=== PATIENT | male | born 1960 | race Caucasian/White ===

== ENCOUNTER 2018-10-23 02:10 | Emergency (ER) | payer OTHER ==
[2018-10-23 02:23] LABS: BILIRUBIN,URINE NEGATIVE (NEGATIVE); CLARITY,URINE HAZY (CLEAR); GLUCOSE, URINE (UA) NEGATIVE (NEGATIVE); KETONES,URINE (UA) NEGATIVE (NEGATIVE); LEUKOCYTE ESTERASE, URINE SMALL (NEGATIVE); NITRITE,URINE NEGATIVE (NEGATIVE); OCCULT BLOOD,URINE LARGE (NEGATIVE); PH,URINE 5.5 PH (5.0-7.5); PROTEIN,URINE 100 mg/dL (NEGATIVE); UROBILINOGEN,URINE 0.2 (NORMAL) E.U./dL (NORMAL)
[2018-10-23 02:32] LABS: BACTERIA,URINE Few /HPF (None Seen); SQUAMOUS EPITHELIAL CELL,UR FEW Squamous (<= Few)
--- NOTE | 2018-10-23 03:02 | ED Physician Documentation ---
History of Present Illness - Stated complaint Stated Complaint: MALE - Chief complaint Chief Complaint: UTI - Additonal information Additional information: This is a 58-year-old male who presents with dysuria, frequency, urgency, as well as hematuria. Patient began having symptoms of some blood in his urine around 5 days ago, he has been drinking plenty of fluids as well as cranberry juice, and his symptoms began to improve yesterday, but then recurred yesterday evening. He did pass a stringy substance on Saturday evening, he has not passed anything else worsening it looks like a stone. He denies any abdominal pain. No nausea or vomiting. He has never had urinary tract infections in the past. He is sexually active only with his , denies any concern for sexually transmitted infection. No penile lesions, no testicular pain. Review of Systems Constitutional: denies: Fever Throat: denies: Oral lesions / sores GI: denies: Abdominal Pain : reports: Dysuria Skin: denies: Lesions PD PAST MEDICAL HISTORY - Past Medical History Cardiovascular: None Respiratory: None Endocrine/Autoimmune: None GI: None : None HEENT: None Psych: None Musculoskeletal: None Derm: None - Past Surgical History Past Surgical History: Yes General: Appendectomy, Colonoscopy - Present Medications Home Medications: Ambulatory Orders Medication Instructions Recorded Confirmed Atorvastatin [Lipitor] 10 mg ORAL DAILY 10/23/18 10/23/18 Cefdinir 300 mg PO BID 7 Days #14 capsule 10/23/18 Lisinopril 10 mg PO DAILY 10/23/18 10/23/18 - Allergies Allergies/Adverse Reactions: Allergies Allergy/AdvReac Type Severity Reaction Status Date / Time No Known Drug Allergies Allergy Verified 10/23/18 02:14 - Social History Does the pt smoke?: No Smoking Status: Never smoker Does the pt drink ETOH?: Yes Does the pt have substance abuse?: No - Immunizations Immunizations are current?: Yes PD ED PE NORMAL - Vitals Vital signs reviewed: Yes - General General: Alert and oriented X 3, No acute distress - HEENT HEENT: PERRL - Cardiac Cardiac: RRR, No murmur - Respiratory Respiratory: Clear bilaterally - Abdomen Abdomen: Soft, Non tender, Non distended - Male Male : Other (Circumcised penis, normal in appearance. Testes down bilaterally, non-tender. No genital lesions. No penile discharge.) - Derm Derm: Warm and dry - Extremities Extremities: No deformity - Neuro Neuro: Alert and oriented X 3 - Psych Psych: Normal mood, Normal affect Results - Vitals Vitals: Vital Signs - 24 hr 10/23/18 02:11 Temperature 36.1 C L Heart Rate 80 Respiratory 18 Rate Blood Pressure 172/94 H O2 Saturation 95 Oxygen O2 Source Room air - Labs Labs: Laboratory Tests 10/23/18 10/23/18 10/23/18 02:17 03:45 03:45 WBC 8.4 RBC 5.16 Hgb 15.0 Hct 46.3 MCV 89.7 MCH 29.1 MCHC 32.4 RDW 12.7 Plt Count 214 MPV 9.0 Neut # (Auto) 6.0 Lymph # (Auto) 1.4 L Mchenry # (Auto) 0.8 Eos # (Auto) 0.1 Baso # (Auto) 0.1 Absolute Nucleated RBC 0.00 Nucleated RBC % 0.0 Sodium 139 Potassium 4.2 Chloride 103 Carbon Dioxide 25 Anion Gap 11.0 BUN 16 Creatinine 1.1 Estimated GFR (MDRD) 69 L Glucose 120 H Calcium 9.5 Urine Color YELLOW Urine Clarity HAZY Urine pH 5.5 Ur Specific [place] >=1.030 H Urine Protein 100 H Urine Glucose (UA) NEGATIVE Urine Ketones NEGATIVE Urine Occult Blood LARGE H Urine Nitrite NEGATIVE Urine Bilirubin NEGATIVE Urine Urobilinogen 0.2 (NORMAL) Ur Leukocyte Esterase SMALL H Urine RBC 11-25 H Urine WBC 11-25 H Ur Squamous Epith Cells FEW Squamous Urine Bacteria Few Ur Microscopic Review INDICATED Urine Culture Comments INDICATED PD MEDICAL DECISION MAKING - ED course Complexity details: considered differential (Urinary tract infection, nephrolithiasis, bladder mass, pyelonephritis, sexually transmitted infection/urethritis, obstruction, TAL) ED course: On initial examination patient is well-appearing, vital signs notable only for hypertension. He has no abdominal pain, his general exam is unremarkable. Urine shows possible infection with white blood cells, red blood cells and few bacteria. He does not have risk factors for sexually transmitted infections I feel this is unlikely, he also has no physical exam findings for epididymitis, he has no abnormal discharge from his penis. His labs show a creatinine of 1.1, unremarkable CBC. Bladder scan showed 18 cc of urine after he urinated. It ap pears that he is having frequency and urgency, but has no signs of obstruction. Given he has no abdominal pain whatsoever, nephrolithiasis is less likely. After discussion with him of the results, we elected to treat with a course of antibiotics for possible hemorrhagic cystitis, which does fit with his symptoms. He understands that there are many other dangerous causes of blood in the urine, and if he is not having improvement of his symptoms or have any worsening he needs to return to care. I also discussed that he needs a recheck of his urine to ensure he does not have continued microscopic hematuria, which would necessitate urologic referral. Patient verbalizes understanding, was given a dose of Keflex here (we do not have cefdinir available), and was discharged with a prescription for Cefdinir which he will start taking this morning. Departure - Departure Disposition: 01 Home, Self Care Condition: Stable Instructions: Hematuria Follow-Up: NESTOR VARELA MD [Primary Care Provider] - Prescriptions: Cefdinir 300 mg PO BID 7 Days #14 capsule Comments: You were seen today for blood in your urine and pain and frequency with urination. You may have a urinary tract infection, we will treat this with a week of antibiotics. If you are not having improvement in your symptoms, it is important that you follow-up with your primary care provider, as there can be some more dangerous causes of blood in your urine such as irritation of the bladder or bladder tumors. You should get a repeat urine test done with your PCP, and if there is still blood you likely will need to see a urologist. If you are having difficulty urinating, fever, abdominal pain, or other concerning symptoms please return to the emergency department.
[2018-10-23 03:54] LABS: BASOPHILS # (AUTO) 0.1 10^3/uL (0.0-0.1); BASOPHILS % (AUTO) 0.6 %; EOSINOPHILS # (AUTO) 0.1 10^3/uL (0.0-0.7); EOSINOPHILS % (AUTO) 1.4 %; LYMPHOCYTES # (AUTO) 1.4 10^3/uL (1.5-3.5); LYMPHOCYTES % (AUTO) 16.7 %; MEAN CORPUSCULAR HEMOGLOBIN 29.1 pg (27.0-31.0); MEAN CORPUSCULAR HGB CONC 32.4 g/dL (32.0-36.0); MEAN CORPUSCULAR VOLUME 89.7 fL (80.0-94.0); MONOCYTES # (AUTO) 0.8 10^3/uL (0.0-1.0); MONOCYTES % (AUTO) 9.1 %; PLT - PLATELET COUNT 214 10^3/uL (130-450); RED BLOOD COUNT 5.16 10^6/uL (4.70-6.10); RED CELL DISTRIBUTION WIDTH 12.7 % (12.0-15.0); WHITE BLOOD COUNT 8.4 x10^3/uL (4.8-10.8)
[2018-10-23 04:07] LABS: CALCIUM 9.5 mg/dL (8.5-10.3); CREATININE 1.1 mg/dL (0.6-1.2)
[2018-10-23] MEDS ORDERED: cephALEXin 250 MG CAPSULE PO STA (04:34)
[2018-10-23 04:37] VITALS: BP 163/98
== END 2018-10-23 04:41 | disposition home or self-care (01) ==
LOC: ED 02:10
DX: N30.01 Acute cystitis with hematuria (principal)
CPT/HCPCS: 36415; 51798; 80048; 81001; 85025; 87086; 87181; 99283; A9270; 81003

== ENCOUNTER 2020-08-26 08:56 | Outpatient (CLI) | payer OTHER ==
[2020-08-26 09:38] VITALS: BP 122/88
--- NOTE | 2020-08-26 09:38 | SLEEP CARE CONSULTATION ---
Information from patient questionnaire entered by Kristi Jordan. I have reviewed and concur with the information entered by Kristi Jordan. This document represents the service I personally performed and the decisions made by me, Diamante Rivera ARNP. History of Present Illness Service Date and Time: 08/26/2020 0856 Reason for Visit: New patient Chief Complaint: reports: Snoring, Observed pauses in breathing Date of Onset: 4.5 years Usual bedtime: 9:30 - 10:30 pm Time it takes to fall asleep: 5 minutes Snores at night: Yes Observed to quit breathing while asleep: Yes Sleeps alone due to snoring: No (will sometimes sleep in other bed to not awaken at night) Number of times waking at night: 3 Reasons for waking at night: reports: Gasping for air (not every night, pants for about 5-10 seconds), Bathroom, Other (Pet in bedroom) Toss, Turn, or Twitch while sleeping: Yes Recalls having dreams: Yes Usually gets out of bed at: 6:30 - 7:30 am; no later than 8 Feels refreshed in the morning: Yes (most days) Morning headache: No Sleepy or fatigued during the day: Yes (sometimes) Ever fallen asleep while driving: No Takes day naps: Yes (sometimes; 2-3 a week for about 45-60 mins) Dreams during day naps: No Prior sleep studies: No Additional HPI information: I had the pleasure of seeing JULES BARKLEY today regarding the possibility of him having a sleep disorder. His current complaints are observed pauses in breathing and snoring. He is here with his has a watch that told him he has Afib and he saw his PCP who confirmed atrial fibrillation and referred him here and to cardiology. His has heard him choking while asleep and seen him stop breathing for up to 30 seconds. - Parasomnia Symptoms Ever been unable to move upon waking from sleep: No Walks in sleep: No Talks in sleep: No Ever acted out dreams in sleep: No Ever felt weak in the knees when startled or emotional: No Bothered by creepy, crawly, restless sensations in legs: No Problems with memory or concentration: No Subjective Initial [place] Sleepiness Scale score: 7 (in 2020) Past Medical History Past Medical History: reports: Hypertension, Arrythmia (atrial fibrillation), Other (moderate cholesterol, A-Fib) Social History The patient's occupation is a CONTRACTOR. Patient is and lives in [place]. Have you smoked in the past 12 months: No Alcohol use: Yes Alcohol amount and frequency: 36 oz twice a month Caffeine use: Yes Caffeine amount and frequency: 12 oz once a week Family History Family history of sleep disordered breathing: Yes Family Hx Sleep Apnea: Mother: Sleep apnea - Treated, Father: Snoring Allergies and Home Medications Drug allergies reviewed: Yes (NKDA) Home medication list reviewed: Yes Allergy and home medication list: Metroprolol 50 mg Lisinopril 10 mg Atorvastatin Baby aspirin Fish oil Potassium Review of Systems Weight gain over past 5 years: 50 Cardiovascular: reports: high blood pressure (treated), irregular heart rate or pulse (treated) Gastrointestinal: denies: heartburn Neurological: denies: headaches Psychiatric: denies: anxiety, depression, mood disorder Ear/Nose/Throat: reports: wisdom teeth removed. denies: tonsillectomy Endocrine: denies: thyroid disease Physical Exam Blood Pressure: 122/88 Cuff size: long Heart Rate: 71 O2 Saturation: 98 Height: 5 ft 7 in Weight: 254 lb Body Mass Index: 39.7 BMI Classification: Obese Mouth and throat: narrow oropharynx Soft palate: long Hard palate: normal Uvula: normal Uvula visualization: 50% Mallampati Class II Tongue: enlarged in size with teeth schwartz on lateral edges Tonsils: 2+ Heart: regular rate and rhythm Lungs: clear bilaterally Impression and Plan 1. Suspected Obstructive Sleep Apnea-Hypopnea Syndrome, as suggested by a history of loud and irregular snoring, observed cessation of breath while asleep, and gasping or choking in sleep. Narrow oropharynx and obesity are common predisposing factors for obstructive sleep apnea-hypopnea syndrome. I recommend proceeding to polysomnography to confirm the diagnosis and to assess severity. If the patient has significant sleep disordered breathing, a manual CPAP titration study will also be performed to find the optimal treatment pressure. I informed the patient of what the sleep studies involve and after some discussion, obtained agreement to proceed. The pathophysiology of obs tructive sleep apnea-hypopnea syndrome was discussed with the patient and health risks of cardiovascular and cerebrovascular disease if not treated. AAS brochure for obstructive sleep apnea-hypopnea syndrome given and reviewed. Risks of drowsy driving discussed in detail and patient advised to avoid long distance driving and to pot puller at the first sign of drowsiness. Patient agreed to plan. * Schedule polysomnography +- manual CPAP titration study and return in 1-2 weeks after the study to discuss result and initiate therapy. * Avoid long distance driving or driving when feeling sleepy. * Avoid alcohol, sedative and muscle relaxant around bedtime. * Attempt to lose weight. * Review instructions provided by trained office staff on how to prepare for the sleep study. * Return for follow-up after sleep study completed. Counseling Topics: Spare mask, Weight loss health impact Visit Type: In Office Other Participants: Spouse/Significant Other Time Spent with Patient (minutes): 31 Provider Statement: I spent 100% of the Face to Face Visit with the patient with greater than 50% spent counseling the patient and coordination of care.
== END 2020-08-26 08:57 | disposition home or self-care (01) ==
LOC: SC 08:56
PROVIDERS: ATTEND Nurse Practitioner Family
DX: R06.83 Snoring (principal); G47.8 Other sleep disorders; R06.81 Apnea, not elsewhere classified; E66.9 Obesity, unspecified; Z68.39 Body mass index [BMI] 39.0-39.9, adult
CPT/HCPCS: 99203; 99212

== ENCOUNTER 2020-09-15 19:49 | Outpatient (CLI) | payer OTHER | END 2020-09-15 19:50 | disposition home or self-care (01) | LOC: SC 19:49 | PROVIDERS: ATTEND Nurse Practitioner Family | DX: G47.33 Obstructive sleep apnea (adult) (pediatric) (principal); G47.61 Periodic limb movement disorder; I48.91 Unspecified atrial fibrillation | CPT/HCPCS: 95810 ==

== ENCOUNTER 2020-09-22 09:44 | Outpatient (CLI) | payer OTHER ==
--- NOTE | 2020-09-22 10:37 | SLEEP CARE CONSULTATION ---
Information from patient questionnaire entered by Kristi Jordan. I have reviewed and concur with the information entered by Kristi Jordan. This document represents the service I personally performed and the decisions made by , Diamante Rivera ARNP. History of Present Illness Service Date and Time: 09/22/2020 0944 Initial [place] Sleepiness Scale score: 7 (in 2020) Current [place] Sleepiness Scale score: 6 Additional HPI information: JULES BARKLEY returns for follow up and results of the recently performed polysomnography. I explained the pathophysiology behind obstructive sleep apnea. We then spent quite a bit of time discussing different treatment options. For mild obstructive sleep apnea, surgery and oral appliance are alternatives to nasal CPAP therapy but in moderate or severe cases, nasal CPAP is the most effective and reliable treatment. Because apnea is primarily in supine position, then positional management therapy could be effective. Methods discussed such as positioning with pillows, using a T-shirt with tennis balls in the back, and shown commercial products that have a pillow format on back to prevent supine sleep. I reviewed the impact of weight changes on sleep apnea and strongly recommended losing weight. After some discussion, the patient opted to go with the nasal CPAP therapy. Nasal autoCPAP set at 4-15 cmH20 will be ordered with rationale explained. A manual titration study will be ordered if unable to find optimal pressure with office adjustments. I explained how CPAP machine works with sample devices Respironics Dreamstation and ResHaload [id number] and what to expect when using the machine. Using CPAP every night in order to get used to it was emphasized. Patient advised to put CPAP mask on before getting into bed so as not to fall asleep without CPAP. To assist acclimation to CPAP use, it could also be used for a short time during day while reading or watching TV. The patient was instructed to call the CPAP supplier to discuss any mechanical problem that may occur. If the mask given is uncomfortable or is difficult to keep on through the night even with adjustment, contact the CPAP supplier as many will replace with another mask style if notified before 30 days. If snoring or perceives is not getting enough air or too much air from the machine, notify this office. [facility] patient education PAP tips reviewed and given to patient. Patient counseled not drink alcohol less than 4 hours before bedtime as it can increase snoring and apnea. Patient was cautioned about risks of drowsy driving until sleepiness symptoms resolve. Sleep Study - Results Type of Sleep Study: Polysomnography Prior sleep studies: No Polysomnography/Home Sleep Study results: IMPRESSION: The quality of the study is good. The patient had slightly reduced sleep efficiency due to a prolonged awakening in the middle of the night.. The sleep architecture was relatively normal considering the firstnight effect. Respiratory monitoring showed severe obstructive sleep apnea-hypopnea (AHI = 48.1) associated with frequent arousals, oxyhemoglobin desaturation and moderate hypoxia (anurag oxygen saturation of 73%). The patient did not sleep supine during this study (supine AHI = 0.0; non-supine = 48.14). Snore was light to loud in intensity. There was moderate periodic leg movement of sleep not contributing to the sleep fragmentation. Cardiac rhythm was atrial fibrillation. No abnormal behavior (parasomnia) observed during the night. Allergies and Home Medications Home medication list reviewed: Yes (no changes) Review of Systems Review of systems same as previous: Yes (no changes) Physical Exam Heart Rate: 96 O2 Saturation: 98 Height: 5 ft 7 in Weight: 257 lb Body Mass Index: 40.2 BMI Classification: Morbidly Obese Impression and Plan 1. Obstructive Sleep Apnea-Hypopnea Syndrome, severe, with lowest oxygen saturation of 73%. Obviously this is the cause of the patients symptoms of unrefreshed sleep, and excessive daytime sleepiness. Positive pressure therapy could benefit hypertension and heart arrhythmia (atrial fibrillation). As mentioned above, the patient will be started on nasal autoCPAP therapy with pressure set at 4-15 cmH2O. A manual titration study will be completed if unable to find optimal treatment pressure with office adjustments. Compliance guidelines also reviewed. A copy of compliance guidelines will be given for reference at check out. 2. Periodic limb movement, moderate, that did not fragment patients sleep. Periodic limb movement of sleep (PLMS) is characterized by episodes of repetitive limb movements that occur during sleep and usually involve the lower limbs. The etiology is unknown but can be associated with restless leg syndrome (RLS), neuropathy, spinal cord diseases, kidney disease, rheumatological disord ers, narcolepsy, obstructive sleep apnea, and REM sleep behavior disorder. Patient was advised that no treatment is needed at this time. If symptoms increase, then further evaluation is indicated. 3. Atrial fibrillation. Follow up as recommended by PCP. * Nasal auto CPAP therapy, pressure at 4-15 cm H2O. * Attempt to lose weight. * Avoid alcohol consumption near bedtime. * Avoid supine sleep until using CPAP. * The patient is again cautioned about driving until sleepiness completely resolves. * Return one month after CPAP obtained. I will assess response to therapy and compliance at that time. Counseling Topics: Weight loss health impact Visit Type: In Office Time Spent with Patient (minutes): 27 Provider Statement: I spent 100% of the Face to Face Visit with the patient with greater than 50% spent counseling the patient and coordination of care.
== END 2020-09-22 09:45 | disposition home or self-care (01) ==
LOC: SC 09:44
PROVIDERS: ATTEND Nurse Practitioner Family
DX: G47.33 Obstructive sleep apnea (adult) (pediatric) (principal); E66.01 Morbid (severe) obesity due to excess calories; Z68.41 Body mass index [BMI] 40.0-44.9, adult
CPT/HCPCS: 99212; 99213

== ENCOUNTER 2023-07-30 12:54 | Outpatient (CLI) | payer OTHER ==
--- NOTE | 2023-07-30 16:40 | MRI Report ---
PROCEDURE: Lumbar Spine WO INDICATIONS: LOW BACK PAIN TECHNIQUE: Noncontrast sagittal T1 spin echo and T2 fast echo, sagittal STIR, axial T1 and T2 fast spin echo thr ough the lumbar spine. In cases with scoliosis, additional coronal T2 fast spin echo may be performe d. COMPARISON: None. FINDINGS: Image quality: Excellent. Alignment and Curvature: There is normal bony alignment. Bone Marrow: Modic type II degenerative endplate changes at L3-L4 and L4-L5. Marrow is of normal ove rall signal. No acute vertebral body compression fractures. Spinal Cord: Conus medullaris terminates at the L2 level. Visualized cord demonstrates normal signa l and size. Paraspinous Soft Tissues: No paravertebral masses. T12-L1: Disc desiccation and minimal disc bulge. No central canal or neuroforaminal stenosis. L1-L2: Disc desiccation and mild disc bulge with posterior annular tear. Facet arthropathy. No cyndi tral canal or left neural foraminal stenosis. Mild right neural foraminal stenosis. L2-L3: Disc desiccation and minimal disc bulge. Facet arthropathy. Epidural lipomatosis. No signif icant central canal stenosis. No neural foraminal stenosis. L3-L4: Disc desiccation and height loss. Posterior disc bulge. Facet arthropathy and thickening of ligamenta flava. Epidural lipomatosis. Severe central canal stenosis. Moderate bilateral neural daniele inal stenosis. L4-L5: Disc desiccation and height loss. Posterior disc bulge. Facet arthropathy and thickening of ligamenta flava. Epidural lipomatosis. Moderate to severe central canal stenosis. Moderate bilateral neural foraminal stenosis. L5-S1: Disc desiccation and height loss. Diffuse disc bulge. Facet arthropathy and thickening of li gamenta flava. Mild left and no right neural foraminal stenosis. IMPRESSION: 1.Multilevel degenerative changes of the lumbar spine as described above. 2.There is severe central canal stenosis at L3-L4. Moderate to severe central canal stenosis at L4-5. 3.Moderate neural foraminal stenosis bilaterally at L3-L4 and L4-L5. Reviewed by: Duane Fitzpatrick MD on 07/30/2023 3:39 PM AKALLISON Approved by: Duane Fitzpatrick MD on 07/30/2023 3:39 PM AKDT Station ID: [id number]
== END 2023-07-30 12:55 | disposition home or self-care (01) ==
LOC: DI 12:54
PROVIDERS: ATTEND Physician Assistant
DX: M51.36 Other intervertebral disc degeneration, lumbar region (principal); M48.061 Spinal stenosis, lumbar region without neurogenic claudication; M47.816 Spondylosis without myelopathy or radiculopathy, lumbar region; M51.37 Other intervertebral disc degeneration, lumbosacral region; M48.07 Spinal stenosis, lumbosacral region; M47.817 Spondylosis without myelopathy or radiculopathy, lumbosacral region